=== PATIENT | female | born 1950 | race Caucasian/White ===

== ENCOUNTER 2018-02-13 19:40 | Observation (INO) | payer MEDICARE, BC ==
[~2018-02-13] VITALS: Ht 160 cm; Wt 79.4 kg
[~2018-02-13 19:40] MED LIST: ASPIR 8181 MG PO; PLAVIX75 MG PO; RAMIPRIL5 MG PO
[2018-02-13] MEDS ORDERED: LIPITOR20 MG PO (19:56)
[2018-02-13] MEDS ORDERED: ASPIRIN 81 MG CHEW TAB PO ONE (20:15)
[2018-02-13 20:25] LABS: BASOPHILS % 0.5 % (0.0-1.0); EOSINOPHILS # (AUTO) 0.2 (0.0-0.4); EOSINOPHILS % 2.8 % (0.0-6.0); HEMATOCRIT 44.7 % (34.2-44.1); HEMOGLOBIN 14.2 g/dL (12.0-16.0); LYMPHOCYTES # (AUTO) 2.4 (1.0-3.2); MEAN CORPUSCULAR HEMOGLOBIN 27.6 pg (28-32); MEAN CORPUSCULAR HGB CONC 31.8 g/dL (31-35); MONOCYTES # (AUTO) 0.7 (0.2-0.8); MONOCYTES % 8.5 % (4.4-11.3); NEUTROPHILS # (AUTO) 4.7 (2.1-6.9); PLATELET COUNT 219 x10e3/uL (140-360); RED BLOOD COUNT 5.14 x10e6/uL (3.6-5.1); RED CELL DISTRIBUTION WIDTH 14.1 % (11.7-14.4)
[2018-02-13 20:33] LABS: INR 0.82; PROTHROMBIN TIME 12.1 seconds (11.9-14.5)
[2018-02-13 20:34] LABS: PARTIAL THROMBOPLASTIN TIME 29.4 seconds (23.8-35.5)
[2018-02-13 20:40] LABS: ALANINE AMINOTRANSFERASE 22 IU/L (0-55); ALBUMIN 4.2 g/dL (3.5-5.0); ALBUMIN/GLOBULIN RATIO 1.1 (0.8-2.0); ALKALINE PHOSPHATASE 74 IU/L (40-150); BLOOD UREA NITROGEN 14 mg/dL (7-26); BUN/CREATININE RATIO 18 (6-25); CALCIUM 9.7 mg/dL (8.4-10.2); CARBON DIOXIDE 25 mmol/L (22-29); CHLORIDE 104 mmol/L (98-107); CREATINE KINASE 83 IU/L (29-168); CREATININE, SERUM 0.78 mg/dL (0.57-1.11); EST GLOMERULAR FILTRATION RATE > 60 ML/MIN (60-); GLUCOSE 98 mg/dL (74-118); SODIUM 141 mmol/L (136-145)
--- NOTE | 2018-02-13 20:44 | Diagnostic Imaging Report ---
Examination: Single AP view of the chest. COMPARISON: None. INDICATION: Chest pain DISCUSSION: Lines/tubes: None. Lungs: The lungs are well inflated and clear. No pneumonia or pulmonary edema. Pleura: No pleural effusion or pneumothorax. Heart and mediastinum: The heart and the mediastinum are unremarkable. Bones and soft tissues: No acute bony abnormalities. IMPRESSION: 1. No acute cardiopulmonary abnormalities. Signed by: Dr. Messi Haddad M.D. on 02/13/2018 8:41 PM
[2018-02-13 20:47] LABS: BILIRUBIN,URINE NEGATIVE (NEGATIVE); CLARITY,URINE CLEAR (CLEAR); COLOR,URINE YELLOW (YELLOW); KETONES,URINE NEGATIVE (NEGATIVE); LEUKOCYTE ESTERASE ,URINE TRACE (NEGATIVE); NITRITE,URINE NEGATIVE (NEGATIVE); PROTEIN,URINE DIPSTICK NEGATIVE (NEGATIVE); URINE UROBILINOGEN 0.2 mg/dL (0.2 - 1)
[2018-02-13 20:57] LABS: EPITHELIAL CELLS,URINE RARE /LPF; WBC,URINE (MAN) 0-5 /HPF (0-5)
[2018-02-13] MEDS ORDERED: LIDOCAINE VISC 2% SOLN 15 ML UDC PO ONE (23:45)
[2018-02-13] MEDS ORDERED: BELLADONNA ALK/PHENOBARBITAL 5 ML UDC PO ONE (23:45)
[2018-02-13] MEDS ORDERED: MAGNESIUM/ALUMINUM/SIMETHICONE 30 ML UDC PO ONE (23:45)
[2018-02-14] MEDS ORDERED: BELLADONNA ALK/PHENOBARBITAL 5 ML UDC ONE (00:15)
[2018-02-14] MEDS ORDERED: ONDANSETRON HCL INJ 2 MG/ML VIAL IV PRN (01:30)
[2018-02-14] MEDS ORDERED: MORPHINE SULFATE 2 MG/ML SYR IV PRN (01:30)
[2018-02-14 06:11] LABS: CREATINE KINASE 61 IU/L (29-168)
[2018-02-14] MEDS: ASPIRIN 81 MG ENTERIC COATED PO SCH (08:08)
[2018-02-14] MEDS ORDERED: FAMOTIDINE 20 MG/2 ML VIAL IV SCH (09:00)
[2018-02-14] MEDS ORDERED: CLOPIDOGREL BISULFATE 75 MG TAB PO SCH (09:00)
[2018-02-14] MEDS ORDERED: CEFTRIAXONE SOD 1 GM VIAL IV SCH (10:15)
[2018-02-14 12:42] VITALS: BP 157/73
[2018-02-14 13:06] VITALS: BP 157/73
[2018-02-14 13:26] VITALS: BP 157/73
[2018-02-14] MEDS: CEFTRIAXONE SOD 1 GM VIAL IV SCH ×2 (13:41→20:00)
[2018-02-14 14:16] LABS: CREATINE KINASE 54 IU/L (29-168)
[2018-02-14 16:00] VITALS: BP 138/77
[2018-02-14 19:58] VITALS: BP 145/70
[2018-02-14] MEDS: ATORVASTATIN 20 MG TAB PO SCH (20:00)
[2018-02-14] MEDS ORDERED: LIDOCAINE HCL 2% LOCAL INJ 5 ML SDV VIAL INJ ONE (20:02)
[2018-02-14] MEDS ORDERED: PROPOFOL IV EMULSION 10 MG/ML 20 ML VIAL ONE (20:02)
[2018-02-14 21:44] VITALS: BP 145/70
[2018-02-15] VITALS: BP 131/60
[2018-02-15 04:22] VITALS: BP 107/54
[2018-02-15 05:21] LABS: BASOPHILS # (AUTO) 0.1 (0.0-0.1); BASOPHILS % 0.8 % (0.0-1.0); EOSINOPHILS # (AUTO) 0.2 (0.0-0.4); EOSINOPHILS % 3.2 % (0.0-6.0); HEMATOCRIT 43.1 % (34.2-44.1); LYMPHOCYTES # (AUTO) 2.5 (1.0-3.2); MEAN CORPUSCULAR HEMOGLOBIN 27.8 pg (28-32); MEAN CORPUSCULAR HGB CONC 32.5 g/dL (31-35); MEAN CORPUSCULAR VOLUME 85.5 fL (81-99); MONOCYTES # (AUTO) 0.5 (0.2-0.8); NEUTROPHILS # (AUTO) 4.1 (2.1-6.9); NEUTROPHILS % 54.7 % (38.7-80.0); PLATELET COUNT 268 x10e3/uL (140-360); RED BLOOD COUNT 5.04 x10e6/uL (3.6-5.1); RED CELL DISTRIBUTION WIDTH 14.1 % (11.7-14.4)
[2018-02-15 05:43] LABS: BLOOD UREA NITROGEN 16 mg/dL (7-26); BUN/CREATININE RATIO 20 (6-25); CALCIUM 9.5 mg/dL (8.4-10.2); CARBON DIOXIDE 26 mmol/L (22-29); CHLORIDE 102 mmol/L (98-107); EST GLOMERULAR FILTRATION RATE > 60 ML/MIN (60-); GLUCOSE 100 mg/dL (74-118); MAGNESIUM 2.2 MG/DL (1.3-2.1); SODIUM 139 mmol/L (136-145)
[2018-02-15 06:45] VITALS: BP 107/56
[2018-02-15 07:06] LABS: CHOL/HDL RATIO 3.2 (3.0-3.6)
[2018-02-15] MEDS: RAMIPRIL 5 MG CAP PO SCH (09:00)
[2018-02-15] MEDS ORDERED: ATORVASTATIN 20 MG TAB PO SCH (09:00)
[2018-02-15] MEDS: ASPIRIN 81 MG ENTERIC COATED PO SCH (09:00)
[2018-02-15] MEDS: ASPIRIN 81 MG CHEW TAB PO SCH (09:02)
[2018-02-15] MEDS: PANTOPRAZOLE 40 MG 10ML VIAL IV SCH (09:02)
[2018-02-15] MEDS: CEFTRIAXONE SOD 1 GM VIAL IV SCH ×2 (09:02→20:05)
[2018-02-15] MEDS: CLOPIDOGREL BISULFATE 75 MG TAB PO SCH (09:03)
[2018-02-15 11:30] VITALS: BP 129/65
--- NOTE | 2018-02-15 15:35 | Consultation ---
DATE OF CONSULTATION: February 15, 2018 CARDIOLOGY CONSULTATION REASON FOR CONSULTATION: Chest pain. HISTORY OF PRESENT ILLNESS: This is a 67-year-old woman with a history of coronary artery disease, status post stent in 2012 and hyperlipidemia, who presents with complaints of chest pain. The patient reports she began having pain on Monday evening around 5:30 p.m. She described the pain as a spasming sensation in her esophagus, 8/10 in severity associated with cough. This occurred every 3-4 minutes for several hours. The pain did not radiate, and there was no evidence of diaphoresis. She presented to the ER for further evaluation. REVIEW OF SYSTEMS: Negative except as per HPI. PAST MEDICAL HISTORY: Coronary artery disease, status post PCI in 2012, hyperlipidemia. PAST SURGICAL HISTORY: Tubal ligation, breast biopsy, section. ALLERGIES: CODEINE. MEDICATIONS: Please see medication list. SOCIAL HISTORY: Denies tobacco, alcohol or illicit drugs. FAMILY HISTORY: Noncontributory. PHYSICAL EXAMINATION VITALS: Temperature 96.6 degrees, pulse 60, respiratory rate 17, blood pressure 129/65, oxygen saturation 97% on room air. GENERAL: A well-developed, well-nourished woman in no acute distress. Awake and alert. HEENT: Normocephalic and atraumatic. Pupils equal. No scleral icterus. NECK: Supple. No thyromegaly or cervical lymphadenopathy. No carotid bruits. LUNGS: Clear to auscultation bilaterally. No wheezes or crackles. CARDIOVASCULAR: Normal rate. Regular rhythm. A 2/6 systolic murmur at the left sternal border. ABDOMEN: Soft and nontender. EXTREMITIES: No edema. NEURO: Nonfocal exam. LABS: WBC 7.45, hemoglobin 14, hematocrit 43.1, and platelets 268,000. Sodium 139, potassium 4, chloride 102, CO2 26, BUN 16, creatinine 0.8. Troponin less than 0.001. EKG is normal sinus rhythm with low voltage QRS. Inferior infarct, age undetermined. Cannot rule out anterior infarct, age undetermined. Chest x-ray with no acute cardiopulmonary abnormalities. IMPRESSION 1. Chest pain. 2. Coronary artery disease: Status post percutaneous coronary intervention in 2012 with 50% in-stent restenosis on cardiac catheterization in 2015. 3. Hyperlipidemia. RECOMMENDATIONS: The patient ruled out for myocardial infarction with serial cardiac biomarkers. She had a nuclear stress test in August of this year with normal perfusion imaging. The patient's pain is atypical. She is undergoing GI evaluation. If the patient continues to have pain after GI evaluation is complete, will consider repeat ischemic evaluation. In the meantime, continue home cardiac medications. Monitor the patient on telemetry. Thank you for this consult. We will continue to follow. Job#: [id number] THANIA
[2018-02-15 16:51] VITALS: BP 126/70
--- NOTE | 2018-02-15 19:53 | Consultation ---
DATE OF CONSULTATION: February 15, 2018 This is a 67-year-old with history of coronary artery disease with previous stent placement in 2012, presented to the hospital because of significant onset of severe chest pressure which she describes as spasming sensation of the esophagus, about 8/10 in intensity. The patient does not have any nausea or vomiting along with this problem. She never had any history of acid reflux or heartburn in the past. Her workup so far revealed that her CBC was okay and her cardiac enzymes were unremarkable. She did have a stress test not long ago, which was apparently unremarkable. Her other medical problems are malignant hypertension, history of hyperlipidemia, previous history of coronary artery disease. She is taking Plavix, aspirin and pantoprazole and now Lipitor, Ramipril. ALLERGIES: NONE. SOCIAL HISTORY: No alcohol use. FAMILY HISTORY: Noncontributory. REVIEW OF SYSTEMS: Denies any chest pain. Denies any shortness of breath. Denies any dysphagia or odynophagia. Denies any dysuria or hematuria or any kind of syncopal episode. PHYSICAL EXAMINATION GENERAL: The patient is awake, alert, appears to be stable. VITAL SIGNS: Afebrile with stable vital signs. HEENT: Normocephalic, atraumatic. Sclerae anicteric. NECK: Supple. HEART: Sounds regular. LUNGS: Clear. ABDOMEN: Soft. There is no distension at this point and is nontender. No rebound or mass. EXTREMITIES: No edema or clubbing. LABORATORY DATA: CMP is okay. Cardiac enzymes negative. CBC is okay. PT and INR normal. IMPRESSION: 1. Cardiac or atypical chest pain, rule out possibility of acid reflux with possible spasms. 2. History of coronary artery disease. 3. Hypertension. RECOMMENDATIONS: Continue current care at this point. Will try to do an upper endoscopy tomorrow or possibly as an outpatient. At this point, continue proton pump inhibitor. Job#: [id number] cc:CYNDI OLIVARES MD cc:CHRISTINE BECKWITH MD
[2018-02-15] MEDS: ATORVASTATIN 20 MG TAB PO SCH (20:05)
[2018-02-16] VITALS (8 sets, daily range): BP systolic 114–142; BP diastolic 58–89
[2018-02-16 05:20] LABS: BASOPHILS % 0.5 % (0.0-1.0); EOSINOPHILS # (AUTO) 0.2 (0.0-0.4); EOSINOPHILS % 2.6 % (0.0-6.0); HEMATOCRIT 40.2 % (34.2-44.1); LYMPHOCYTES # (AUTO) 2.2 (1.0-3.2); LYMPHOCYTES % 29.5 % (18.0-39.1); MEAN CORPUSCULAR HEMOGLOBIN 27.6 pg (28-32); MEAN CORPUSCULAR HGB CONC 32.3 g/dL (31-35); MEAN CORPUSCULAR VOLUME 85.4 fL (81-99); MONOCYTES # (AUTO) 0.7 (0.2-0.8); NEUTROPHILS # (AUTO) 4.4 (2.1-6.9); NEUTROPHILS % 58.1 % (38.7-80.0); PLATELET COUNT 262 x10e3/uL (140-360); RED BLOOD COUNT 4.71 x10e6/uL (3.6-5.1); RED CELL DISTRIBUTION WIDTH 13.9 % (11.7-14.4)
[2018-02-16 05:34] LABS: BLOOD UREA NITROGEN 18 mg/dL (7-26); BUN/CREATININE RATIO 22 (6-25); CARBON DIOXIDE 28 mmol/L (22-29); CHLORIDE 104 mmol/L (98-107); CREATININE, SERUM 0.83 mg/dL (0.57-1.11); EST GLOMERULAR FILTRATION RATE > 60 ML/MIN (60-); GLUCOSE 110 mg/dL (74-118); MAGNESIUM 2.2 MG/DL (1.3-2.1); SODIUM 141 mmol/L (136-145)
[2018-02-16] MEDS: RAMIPRIL 5 MG CAP PO SCH (08:39)
[2018-02-16] MEDS: ASPIRIN 81 MG CHEW TAB PO SCH (08:39)
[2018-02-16] MEDS: CLOPIDOGREL BISULFATE 75 MG TAB PO SCH (08:39)
[2018-02-16] MEDS: ASPIRIN 81 MG ENTERIC COATED PO SCH (08:39)
[2018-02-16] MEDS: PANTOPRAZOLE 40 MG 10ML VIAL IV SCH (09:30)
[2018-02-16] MEDS: CEFTRIAXONE SOD 1 GM VIAL IV SCH (09:30)
--- NOTE | 2018-02-16 13:25 | Progress Note ---
DATE: February 16, 2018 CARDIOLOGY PROGRESS NOTE SUBJECTIVE: Patient denies chest pain or shortness of breath. She is scheduled for EGD today. OBJECTIVE VITAL SIGNS: Temperature 96.8 degrees, pulse 59, respiratory rate 18, blood pressure 142/67, oxygen saturation 97% on room air. GENERAL: Awake, alert, in no acute distress. LUNGS: Clear to auscultation bilaterally. No wheezes or crackles. CARDIOVASCULAR: Normal rate, regular rhythm. A 2/6 systolic murmur at the left sternal border. ABDOMEN: Soft, nontender. EXTREMITIES: No edema. CARDIAC MEDICATIONS 1. Atorvastatin 20 mg p.o. nightly. 2. Ramipril 10 mg p.o. daily. 3. Plavix 75 mg p.o. daily. 4. Aspirin 81 mg p.o. daily. LABS: WBC 7.56, hemoglobin 13, hematocrit 40.2, platelets 262. Sodium 141, potassium 4, chloride 104, CO2 28, BUN 18, creatinine 0.83. TELEMETRY: Normal sinus rhythm. IMPRESSION 1. Chest pain. 2. Coronary artery disease status post percutaneous coronary intervention in 2012 with 50% in-stent restenosis on cardiac catheterization in 2015. 3. Hyperlipidemia. RECOMMENDATIONS: Patient ruled out for myocardial infarction with serial cardiac biomarkers. Nuclear stress test demonstrated normal perfusion August of this year. As patient's pain description is atypical, she is undergoing GI evaluation. If GI evaluation is inconclusive, will consider repeat ischemic evaluation at that time. In the meantime, continue current cardiac medications. Monitor patient on telemetry. Thank you for this consult. We will continue to follow. Job#: [id number] ALYSA
[2018-02-16] MEDS ORDERED: MIDAZOLAM HCL 2 MG/2 ML VIAL ONE (19:29)
[2018-02-16] MEDS ORDERED: FENTANYL CITRATE/PF 100MCG/2 ML INJ ONE (19:29)
[2018-02-16] MEDS: ATORVASTATIN 20 MG TAB PO SCH (21:05)
[2018-02-17 00:30] VITALS: BP 103/56
[2018-02-17 06:00] VITALS: BP 111/58
[2018-02-17 08:13] VITALS: BP 137/70
[2018-02-17 08:25] VITALS: BP 137/70
[2018-02-17] MEDS: PANTOPRAZOLE 40 MG 10ML VIAL IV SCH (08:39)
[2018-02-17] MEDS: ASPIRIN 81 MG CHEW TAB PO SCH (08:39)
[2018-02-17] MEDS: CLOPIDOGREL BISULFATE 75 MG TAB PO SCH (08:39)
[2018-02-17] MEDS: RAMIPRIL 5 MG CAP PO SCH (08:39)
[2018-02-17 11:37] VITALS: BP 138/67
--- NOTE | 2018-02-17 13:45 | Progress Note ---
DATE: February 17, 2018 CARDIOLOGY PROGRESS NOTE SUBJECTIVE: The patient denies chest pain or shortness of breath. OBJECTIVE VITALS: Temperature 97.2 degrees, pulse 65, respiratory rate 18, blood pressure 138/67, oxygen saturation 97%. GENERAL: Awake and alert, in no acute distress. LUNGS: Clear to auscultation bilaterally. No wheezes or crackles. CARDIOVASCULAR: Normal rate, regular rhythm, 2/6 systolic murmur at the left sternal border. ABDOMEN: Soft and nontender. EXTREMITIES: No edema. CARDIAC MEDICATIONS 1. Ramipril 10 mg p.o. daily. 2. Plavix 75 mg p.o. daily. 3. Aspirin 81 mg p.o. daily. 4. Atorvastatin 20 mg p.o. q.h.s. LABS: None today. IMPRESSION 1. Chest pain. 2. Coronary artery disease, status post percutaneous coronary intervention in 2012 with 50% in-stent restenosis on cardiac catheterization in 2015. 3. Hyperlipidemia. RECOMMENDATIONS: The patient ruled out for myocardial infarction with serial cardiac biomarkers. Nuclear stress test demonstrated normal perfusion in August of this year. GI evaluation only revealed hiatal hernia as well as gastritis. If she has recurrent chest pain, plan for cardiac catheterization for further evaluation as an outpatient. ER warnings were given to the patient. Thank you for this consult. We will continue to follow. Job#: [id number] RANJITH
--- NOTE | 2018-02-18 09:59 | Discharge Summary ---
PERTINENT HISTORY AND PHYSICAL FINDINGS: Patient is a 67-year-old female that had complaint of sharp intermittent central chest pain and esophageal spasming that began on February 13 while lying down. The spasming happened every 3 minutes and lasted for 5 hours. The patient had denied any radiation to other areas. The pain improved with GI cocktail and was not worsened by anything. The patient denied any nausea, vomiting, or diaphoresis at that point. PAST MEDICAL HISTORY: Includes hypertension, DE with cardiac stents, hyperlipidemia, shingles, and scabies. ADMISSION DIAGNOSES 1. Chest pain. 2. Hypertension. 3. Hyperlipidemia. 4. History of myocardial infarction with stents. 5. Urinary tract infection. 6. Bradycardia. 7. Gastroesophageal reflux disease. DISCHARGE DIAGNOSES 1. Chest pain, rule out myocardial infarction versus atypical chest pain versus gastroesophageal reflux disease, likely gastritis. 2. Coronary artery disease, history of myocardial infarction and percutaneous coronary intervention in 2012 with 50% in-stent restenosis on left heart cath in 2016. 3. Hypertension complicated by coronary artery disease. 4. Urinary tract infection, organism not identified. 5. Asymptomatic bradycardia. 6. Hypomagnesemia. 7. Mild headache. CONSULTING PHYSICIANS 1. Dr. Rishabh Davies with GI. 2. Dr. Marcos Tomlin with cardiology. PERTINENT DIAGNOSTICS AND LABS: Today at the day of discharge no labs drawn. Yesterday, lab showed sodium 141, potassium 4.0, chloride 104, CO2 of 28, BUN 18, creatinine 0.83, and glucose 110. WBC 7.56, hemoglobin 13, hematocrit 40.2, and platelets 262. Echocardiogram completed on February 15 showed ejection fraction of 60% to 65% without impaired relaxation and with good LV function. On February 13 urine culture and sensitivity showed contamination and another UA was not collected; however, the empiric Rocephin has been continued without further signs and symptoms and without fever. Thus, we will not sent home on any antibiotics. Chest x-ray completed on February 13 was negative. EGD done on February 16 showed gastritis and hiatus hernia. Patient's home medications have been continued during her stay. We will discharge her home today. FOLLOWUP: The patient to follow up with Dr. Davies in few weeks. Follow up with PCP in 1 to 2 weeks. She states she does not have a PCP at this time. Phone number for Dr. Hilliard's office was provided. Today, she has no complaints. Denies chest pain. No chills. Physical examination is unchanged. No DME required. DIET: Cardiac diet. ACTIVITY LEVEL: As tolerated. Dictated by: Ritesh Brody NP Job#: [id number] VAS
--- OUTSIDE RECORDS SUMMARY | 2018-02-20 12:28 | XMS REPORT ---
Author Author [facility] Address Unknown Phone Unavailable Care Team Providers [employer]er Name Role Phone Roshan GARCIA Unavailable Unavailable Problems This patient has no known problems. Allergies, Adverse Reactions, Alerts This patient has no known allergies or adverse reactions. Medications This patient has no known medications. Results Test Description Test Time Test Comments Text Results Atomic Results Result Comments CHEST SINGLE (PORTABLE) 2018-02-13 20:41:00 [place] [address] Patient Name: REILLY PEREZ MR #: [id number] : 1950 Age/Sex: 67/F Req #: [id number] Adm Physician: Ordered by: ALPA GARCIA MD Report #: [id number] Location: ER Room/Bed: Procedure: [id number] DX/CHEST SINGLE (PORTABLE) Exam Date: 02/13/18 Exam Time: 2009 REPORT STATUS: Signed Examination: Single AP view of the chest. COMPARISON: None. INDICATION: Chest pain DISCUSSION: Lines/tubes: None. Lungs: The lungs are well inflated and clear. No pneumonia or pulmonary edema. Pleura: No pleural effusion or pneumothorax. Heart and mediastinum: The heart and the mediastinum are unremarkable. Bones and soft tissues: No acute bony abnormalities. IMPRESSION: 1. No acute cardiopulmonary abnormalities. Signed by: Dr. Johan Seymour M.D. on 02/13/2018 8:41 PM Dictated By: JOHAN SEYMOUR MD 40 Transcribed By: MELE on 02/13/182040 COPY TO: ALPA GARCIA MD
== END 2018-02-17 13:20 | disposition home or self-care (01) ==
LOC: ER 19:40 → ERHOLD 02-14 01:28 → IMCU 02-14 12:41
PROVIDERS: ADMIT Internal Medicine; ATTEND Internal Medicine
DX: R07.89 Other chest pain (principal); K29.50 Unspecified chronic gastritis without bleeding; I10 Essential (primary) hypertension; I25.10 Atherosclerotic heart disease of native coronary artery without angina pectoris; I25.2 Old myocardial infarction; Z95.5 Presence of coronary angioplasty implant and graft; E78.5 Hyperlipidemia, unspecified; Z82.49 Family history of ischemic heart disease and other diseases of the circulatory system; K22.4 Dyskinesia of esophagus; Z88.5 Allergy status to narcotic agent; Z91.012 Allergy to eggs; N39.0 Urinary tract infection, site not specified; R00.1 Bradycardia, unspecified; K44.9 Diaphragmatic hernia without obstruction or gangrene; E83.42 Hypomagnesemia; R51 Headache; K21.0 Gastro-esophageal reflux disease with esophagitis
CPT/HCPCS: 36415 ×4; 43239; 71045; 80048 ×2; 80053; 80061; 81001; 82550 ×2; 82553 ×2; 83735 ×2; 83880; 84484 ×2; 85025 ×3; 85610; 85730; 87086; 88305; 88312; 93005; 93306; 99284; G0378 ×4; J0696 ×3; J2001; J2250

== ENCOUNTER → 2022-10-13 | Day surgery (SDC) | payer BC, MEDICARE ==
[2022-10-10 12:35] LABS: BASOPHILS # (AUTO) 0.1 (0.0-0.1); BASOPHILS % 0.7 % (0.0-1.0); EOSINOPHILS # (AUTO) 0.1 (0.0-0.4); HEMATOCRIT 43.5 % (34.2-44.1); HEMOGLOBIN 13.5 g/dL (12.0-16.0); LYMPHOCYTES # (AUTO) 1.7 (1.0-3.2); LYMPHOCYTES % 24.2 % (18.0-39.1); MEAN CORPUSCULAR HEMOGLOBIN 27.3 pg (28-32); MEAN CORPUSCULAR VOLUME 88.1 fL (81-99); MONOCYTES # (AUTO) 0.5 (0.2-0.8); MONOCYTES % 6.4 % (4.4-11.3); NEUTROPHILS # (AUTO) 4.7 (2.1-6.9); NEUTROPHILS % 66.6 % (38.7-80.0); PLATELET COUNT 251 x10e3/uL (140-360); RED BLOOD COUNT 4.94 x10e6/uL (3.6-5.1); RED CELL DISTRIBUTION WIDTH 13.7 % (11.7-14.4)
[2022-10-10 12:52] LABS: ANION GAP 11.9 mmol/L (8-16); CALCIUM 9.6 mg/dL (8.4-10.2); CREATININE, SERUM 0.77 mg/dL (0.57-1.11); POTASSIUM 3.9 mmol/L (3.5-5.1)
[~2022-10-13] MED LIST changes: +BALANCED SALT SOLN (OPTH) 15 ML BTL IO ONE; +BUPIVACAINE HC 0.75% PF 10ML VIAL INJ ONE; +CYCLOPENTOLATE HCL 2% OPTH SOLN 2 ML BTL OP ONE; +EPINEPHRINE HCL 1:1000 1ML 1 MG/ML AMP ONE; +FENTANYL CITRATE/PF 100MCG/2 ML INJ ONE; +LACTATED RINGER'S 1,000 ML ONE; +LIDOCAINE 2% /EPINEPHRINE 20 ML SDV INJ ONE; +LIDOCAINE HCL 2% LOCAL INJ 5 ML SDV VIAL INJ ONE; +LIDOCAINE HCL-PF 4% 40 MG/1 ML 5ML AMP ONE; +LIPITOR20 MG PO; +MIDAZOLAM HCL 2 MG/2 ML VIAL ONE; +PHENYLEPHRINE HCL 2 ML DROPS ONE; +POVIDONE IODINE 0.05% 0.05 % ML PO ONE; +POVIDONE IODINE 5% (OPTH) 30 ML BTL ONE; +PROPOFOL IV EMULSION 10 MG/ML 20 ML VIAL ONE; +TOBRAMYCIN/DEXAMETHASONE(OPTH) 3.5 GM TUBE ONE
[2022-10-13 10:22] VITALS: TEMP 97.6
[2022-10-13 10:35] VITALS: BP 150/69; PULSE 50; RESP 16; O2SAT 99
== END | disposition home or self-care (01) ==
LOC: OR 06:36
PROVIDERS: ATTEND Ophthalmology
DX: H25.12 Age-related nuclear cataract, left eye (principal); I10 Essential (primary) hypertension; I25.2 Old myocardial infarction; Z01.810 Encounter for preprocedural cardiovascular examination; Z01.812 Encounter for preprocedural laboratory examination; Z79.02 Long term (current) use of antithrombotics/antiplatelets; Z79.899 Other long term (current) drug therapy; Z95.5 Presence of coronary angioplasty implant and graft
CPT/HCPCS: 36415; 66984; 80048; 85025; 93005; J0171; J2001 ×2; J2250; J2704; J3010; J7121; V2632

== ENCOUNTER 2023-10-30 11:13 | Outpatient (RCR) | payer MEDICARE ==
[~2023-10-30 11:13] MED LIST changes: -BALANCED SALT SOLN (OPTH) 15 ML BTL IO ONE; -BUPIVACAINE HC 0.75% PF 10ML VIAL INJ ONE; +COQ-10100 MG; -CYCLOPENTOLATE HCL 2% OPTH SOLN 2 ML BTL OP ONE; -EPINEPHRINE HCL 1:1000 1ML 1 MG/ML AMP ONE; -FENTANYL CITRATE/PF 100MCG/2 ML INJ ONE; -LACTATED RINGER'S 1,000 ML ONE; -LIDOCAINE 2% /EPINEPHRINE 20 ML SDV INJ ONE; -LIDOCAINE HCL 2% LOCAL INJ 5 ML SDV VIAL INJ ONE; -LIDOCAINE HCL-PF 4% 40 MG/1 ML 5ML AMP ONE; -MIDAZOLAM HCL 2 MG/2 ML VIAL ONE; -PHENYLEPHRINE HCL 2 ML DROPS ONE; -POVIDONE IODINE 0.05% 0.05 % ML PO ONE; -POVIDONE IODINE 5% (OPTH) 30 ML BTL ONE; -PROPOFOL IV EMULSION 10 MG/ML 20 ML VIAL ONE; -TOBRAMYCIN/DEXAMETHASONE(OPTH) 3.5 GM TUBE ONE
== END 2023-11-05 23:59 | disposition home or self-care (01) ==
LOC: PT 11:13
PROVIDERS: ATTEND Internal Medicine
DX: M54.42 Lumbago with sciatica, left side (principal)

== ENCOUNTER 2023-11-06 11:18 | Outpatient (RCR) | payer MEDICARE | END 2023-12-06 | LOC: PT 11:18 | PROVIDERS: ATTEND Internal Medicine | DX: M54.42 Lumbago with sciatica, left side (principal); M62.81 Muscle weakness (generalized); M25.572 Pain in left ankle and joints of left foot ==